=== PATIENT | male | born 1980 | race Caucasian/White ===

== ENCOUNTER → 2021-08-12 | Outpatient (CLI) | payer OTHER ==
--- NOTE | 2021-08-12 11:11 | RAD ---
EXAM: CT Abdomen and Pelvis without IV contrast CLINICAL HISTORY: Reason: LEFT KIDNEY STONE SINCE JUNE COMPARISON: none TECHNIQUE: Helical CT of the abdomen and pelvis without intravenous contrast. Axial, coronal and sagi ttal reformatted images were generated. PQRS compliance statement - One or more of the following individualized dose reduction techniques wer e utilized for this study: 1. Automated exposure control 2. Adjustment of the mA and/or kV according to patient size 3. Use of iterative reconstruction technique FINDINGS: Lack of intravenous contrast limits evaluation of solid organs, vasculature, and lymph nodes. Lower chest: Linear opacities lung bases likely scarring/atelectasis. Abdomen and Pelvis: Spleen, liver, gallbladder are unremarkable. Pancreas is unremarkable. Adrenal glands are normal. No focal renal lesion. Nonobstructing left interpolar and left upper pole renal calculus. No right renal calculi. No ureteral calculi are seen. A 5 mm calculus is seen at the dependent aspect of the left b ladder. Borderline bladder wall thickening likely cystitis. Fat-containing periumbilical hernias are seen. Moderate colonic stool content is seen. No small or large bowel dilatation. Appendix is normal. No abdominal or pelvic ascites. No abdominal or pelvic lymphadenopathy. Bones: No aggressive osseous lesion is seen. IMPRESSION: 1. 5 mm calculus dependent left bladder. 2. Nonobstructing left renal calculi. 3. No hydronephrosis or hydroureter. Electronically signed by: Yash Sin MD (08/12/2021 11:09 AM) [id number]
== END ==
LOC: CT 10:23
PROVIDERS: ATTEND Urology
DX: N20.1 Calculus of ureter (principal); N20.0 Calculus of kidney; K42.9 Umbilical hernia without obstruction or gangrene
CPT/HCPCS: 74176